=== PATIENT | male | born 1970 | race Caucasian/White ===

== ENCOUNTER 2016-11-30 08:30 | Day surgery (SDC) | payer OTHER ==
[2016-11-28 15:12] LABS: MANUAL DIFF NEEDED? NO
[2016-11-28 15:15] LABS: BASO% 1.2 % (0.0-0.8); EOS# 0.49 X1000 (0.0-0.7); EOS% 5.4 % (0.0-10.0); HEMATOCRIT 43.1 % (42.0-52.0); HEMOGLOBIN 15.1 g/dL (14.0-18.0); IMM GRAN# 0.02 X1000 (0.0-0.04); IMM GRAN% 0.2 % (0.0-0.5); LYMPH% 23.3 % (20.5-51.1); MCH 35.9 PG (27-31); MCV 102.4 FL (81-99); MONO% 7.8 % (1.7-9.3); MPV 10.1 FL (7.4-10.4); NEUT% 62.1 % (42.2-75.2); PLT 199 X1000 (130-400); RBC 4.21 XMIL (4.7-6.1)
--- NOTE | 2016-11-28 15:44 | EKG Report ---
Test Performed on : 11/28/2016 2:59:40 PM Test Reason : PAT Blood Pressure : / mmHG Vent. Rate : 072 BPM Atrial Rate : 072 BPM P-R Int : 152 ms QRS Dur : 086 ms QT Int : 356 ms P-R-T Axes : 078 081 072 degrees QTc Int : 389 ms Normal sinus rhythm. Normal ECG No previous ECGs available Confirmed by Evelyn MAHER, Aj Jean ([id number]) on 11/29/2016 3:23:26 PM
[2016-11-28 16:02] LABS: AGAP 10; BUN 9 mg/dL (8-22); CALCIUM 9.9 mg/dL (8.8-10.2); CHLORIDE 100 mmol/L (98-107); COSMO 278; POTASSIUM 4.2 mmol/L (3.5-5.1); SODIUM 140 mmol/L (136-145); TCO2 30 mmol/L (25-35)
[2016-11-30] MEDS ORDERED: LR 1,000 ML ONE ×2 (08:39→15:40)
[2016-11-30] MEDS ORDERED: KEFZOL 1 GM/D5W 50 ML ONE (08:39)
[2016-11-30] MEDS ORDERED: REGLAN ONE (08:54)
[2016-11-30] MEDS ORDERED: VALIUM ONE (08:54)
[2016-11-30] MEDS ORDERED: PEPCID ONE (08:54)
[2016-11-30] MEDS ORDERED: MARCAINE 0.25% PF/EPI 1:200,000 ONE (09:06)
[2016-11-30] MEDS ORDERED: ROBINUL ONE ×2 (09:24→15:40)
[2016-11-30] MEDS: DILAUDID ONE ×2 (11:06→11:11)
[2016-11-30] MEDS ORDERED: NORCO-10 ONE (11:41)
--- NOTE | 2016-11-30 11:50 | OPERATIVE NOTE ---
PROCEDURE DATE: 11/30/2016 PREOPERATIVE DIAGNOSIS: Left inguinal hernia. POSTOPERATIVE DIAGNOSIS: Left inguinal hernia. PROCEDURE: Laparoscopic assisted robotic left inguinal hernia repair. SURGEON: Florencio Coello MD. ANESTHESIA: General. ESTIMATED BLOOD LOSS: 5 mL. COMPLICATIONS: None apparent. SPECIMENS: None. FINDINGS: Direct left inguinal hernia. The previously repaired right inguinal hernia was intact and no recurrent hernia was seen. TECHNIQUE: The patient was brought to the operating room and placed supine on the table. General anesthesia was induced. He was then placed in stirrups and a Mclean catheter was placed. He was prepped and draped in the usual sterile fashion. Marcaine 0.25% with epinephrine was used to anesthetize our previous incisions. An incision was made above the umbilicus in the midline. The fascia was exposed and incised sharply. Entry into the peritoneal cavity was obtained under direct vision with the [employer] device. Pneumoperitoneum was established. The camera was inserted. There was no evidence of injury to underlying structures. Two 8 mm incision and ports were placed in the left and right upper quadrants through the previous incisions. The ports were placed under direct vision. The robot was brought in and docked to the ports. The instruments were inserted and I went to the console. The right inguinal canal showed no recurrent hernia. The mesh was well incorporated in the peritoneum. I then turned my attention to the left side. There was an direct left inguinal hernia. I incised the peritoneum over the lower left abdominal wall and dissected it free of the overlying muscles, reducing the direct sac as we did this. I the peritoneum off of the testicular vessels and vas deferens and then brought in a self-fixating ProGrip mesh and unfurled it along the inguinal canal. The direct and indirect spaces and femoral spaces were covered well. The mesh was lying in good approximation to the abdominal and pelvic wall. I then closed the peritoneum over the mesh with a running absorbable 3 0 V-Loc suture. There was a small tear in the peritoneum inferiorly. This was repaired with a bcxorb-bi-gnilj 3-0 V-Loc suture. I then returned to the sterile field. The robot was undocked. The instruments were inserted. The abdomen was desufflated. The ports were removed. The umbilical fascia was closed with a figure- of-eight 0 Vicryl. The skin was closed with running 4-0 subcuticular Monocryl and Steri-Strips. There were no apparent complications. He was awakened in stable condition and transferred to the recovery room. CATHOLIC HEALTHEstrella
[2016-11-30 12:12] VITALS: BP 126/78
[2016-11-30] MEDS ORDERED: DIPRIVAN 1% ONE (15:22)
[2016-11-30] MEDS ORDERED: FENTANYL ONE ×2 (15:23)
[2016-11-30] MEDS ORDERED: NEOSTIGMINE ONE (15:39)
[2016-11-30] MEDS ORDERED: NORCURON ONE (15:40)
[2016-11-30] MEDS ORDERED: STERILE WATER INJ. ONE (15:40)
[2016-11-30] MEDS ORDERED: ZOFRAN ONE (15:40)
[2016-11-30] MEDS ORDERED: QUELICIN (DOSE) ONE (15:40)
[2016-11-30] MEDS ORDERED: XYLOCAINE-MPF 2% ONE (15:40)
== END 2016-11-30 12:12 | disposition home or self-care (01) ==
LOC: OPS 08:30
PROVIDERS: ATTEND Surgery
DX: K40.90 Unilateral inguinal hernia, without obstruction or gangrene, not specified as recurrent (principal); F17.210 Nicotine dependence, cigarettes, uncomplicated; I10 Essential (primary) hypertension
CPT/HCPCS: 80048; 85025; 93005; 93010; C1781; J0330; J0690; J1170; J2405; J3010; J7120; J2710; S0020